=== PATIENT | female | born 1970 | race Caucasian/White ===

== ENCOUNTER 2017-08-30 04:00 | Emergency (ER) | payer OTHER ==
[~2017-08-30] VITALS: Ht 170.2 cm; Wt 57.6 kg
[2017-08-30] MEDS ORDERED: BIRTH CONTROL (04:14)
[2017-08-30] MEDS ORDERED: SPIRONOLACTONE100 M3 PO (04:15)
[2017-08-30 04:45] LABS: ABSOLUTE LYMPHOCYTES 3.3 thou/uL (0.8-5.3); ABSOLUTE MONOCYTES 0.5 thou/uL (0.0-1.2); ABSOLUTE NEUTROPHILS 5.6 thou/uL (1.6-8.1); BASOPHILS 0.5 %; EOSINOPHILS 0.5 %; HEMATOCRIT 40.5 % (37.0-47.0); HEMOGLOBIN 13.7 gm/dL (12.0-15.0); LYMPHOCYTES 34.3 %; MCH 32.8 pg (26.0-34.0); MCHC 33.9 g/dL (28.0-37.0); MCV 96.6 fL (80.0-100.0); MONOCYTES 5.5 %; MPV 8.2 fl. (7.2-11.1); NUCLEATED RBCS 0 /100WBC; PLATELET COUNT* 170 thou/uL (150-400); POLYS 59.2 %; RBC 4.19 mil/uL (4.20-5.00); RDW-CV 12.5 % (10.5-14.5); WBC 9.5 thou/uL (4.0-11.0)
[2017-08-30 04:57] LABS: URINE BILIRUBIN NEGATIVE (Negative); URINE BLOOD 2+ (Negative); URINE CLARITY CLEAR; URINE COLOR YELLOW; URINE GLUCOSE-RANDOM NEGATIVE (Negative); URINE KETONES NEGATIVE (Negative); URINE LEUKOCYTES-REFLEX NEGATIVE (Negative); URINE NITRITE-REFLEX NEGATIVE (Negative); URINE PROTEIN NEGATIVE (Negative); URINE UROBILINOGEN 0.2 E.U./dl (0.2-1.0)
[2017-08-30 05:03] LABS: ANION GAP 6 mmol/L (7-16); BUN 19 mg/dL (7-18); CALCIUM 8.7 mg/dL (8.5-10.1); CHLORIDE 104 mmol/L (98-107); CO2 25 mmol/L (21-32); CREATININE 1.3 mg/dL (0.6-1.3); GLUCOSE 107 mg/dL (70-99); SODIUM 135 mmol/L (136-145)
[2017-08-30 05:07] LABS: ALBUMIN 3.2 g/dL (3.4-5.0); ALKALINE PHOSPHATASE 42 U/L (46-116); LIPASE 172 U/L (73-393); SGOT 17 U/L (15-37); SGPT 19 U/L (30-65); TOTAL BILIRUBIN 0.3 mg/dL (<0.1-1.0); TOTAL PROTEIN 6.8 g/dL (6.4-8.2); TROPONIN-I LEVEL <0.06 ng/mL (<0.06)
[2017-08-30 05:36] LABS: CASTS None Seen /LPF (None Seen); SQUAMOUS 0-3 Few /LPF (0-3)
[2017-08-30 05:37] LABS: BACTERIA-REFLEX 1-9 Few /HPF (None Seen); CRYSTALS None Seen /LPF (None Seen); URINE RBC 3-10 Few /HPF (0-2); URINE WBC-REFLEX None Seen /HPF (0-5)
[2017-08-30] MEDS ORDERED: ZOFRAN ODT4 MG PO (08:08)
[2017-08-30] MEDS ORDERED: NORCO 5-325 TA1 EACH PO (08:08)
[2017-08-30 08:24] VITALS: BP 96/52
[2017-08-30] MEDS ORDERED: FLAGYL 250 MG250 MG PO (08:27)
--- NOTE | 2017-08-30 12:42 | EKG ---
[place] [address] ELECTROCARDIOGRAM REPORT Name: SUGEYCARMELINA PRATT Room: [facility]#: [id number] Admission: 08/30/17 Attend Phys: Discharge: 08/30/17 Date of : 66 Report #: [id number] THIS REPORT FOR: //name// [facility] ED Test Date: 2017-08-30 Test Time: 04:16:46 Pat Name: CARMELINA MAYES Department: Room: Gender: F Heat [employer] Supervisor: JAZZY : 1970 Requested By: Juan M Walker Order Number: [id number] MD: Nicholas Thomason Measurements Intervals [place] Rate: 57 P: 90 [place]: 149 QRS: 87 QRSD: 70 T: 70 QT: 434 QTc: 423 Interpretive Statements Sinus rhythm Probable left atrial enlargement Nonspecific T abnrm, anterolateral leads ST elev, probable normal early repol pattern Baseline wander in lead(s) V3,V4,V5,V6 No previous ECG available for comparison Electronically Signed On 08-30-2017 12:42:26 CDT by Nicholas Thomason [email or web address] <ELECTRONICALLY SIGNED> By: Nicholas Thomason MD, [facility] 08/30/17 1242 0416 [id number] Nicholas Thomason MD, [facility] /EPI
== END 2017-08-30 08:34 | disposition home or self-care (01) ==
LOC: M.ERS 04:00
PROVIDERS: Emergency Medicine Emergency Medical Services
DX: R10.13 Epigastric pain (principal); R55 Syncope and collapse